=== PATIENT | male | born 1945 | race Caucasian/White ===

== ENCOUNTER 2023-04-22 20:31 | Inpatient (IN) | payer MEDICARE ==
[~2023-04-22] VITALS: Ht 165.1 cm; Wt 113.4 kg
[2023-04-22] MEDS ORDERED: IV NORMAL SALINE 500 ML BAG IV ONE (20:45)
[2023-04-22 21:02] LABS: BASOPHILS # (AUTO) 0.1 K/UL (0.0-0.2); EOSINOPHILS % (AUTO) 0.1 % (0.0-7.0); HEMATOCRIT 37.7 % (36.7-47.1); HEMOGLOBIN 12.7 g/dL (12.5-16.3); LYMPHOCYTES # (AUTO) 0.2 K/uL (0.8-4.8); LYMPHOCYTES % (AUTO) 3.2 % (20.5-51.5); MEAN CORPUSCULAR HEMOGLOBIN 33.3 uug (23.8-33.4); MEAN CORPUSCULAR HGB CONC 34 g/dL (32.5-36.3); MEAN CORPUSCULAR VOLUME 98.8 fL (73.0-96.2); MONOCYTES # (AUTO) 0.7 K/uL (0.1-1.30); MONOCYTES % (AUTO) 13.2 % (0.0-11.0); NEUTROPHILS # (AUTO) 4.7 K/uL (1.8-8.9); NEUTROPHILS % (AUTO) 82.5 % (38.5-71.5); PLATELET COUNT (AUTO) 120 K/uL (152-348); RED BLOOD CELL COUNT(AUTO) 3.81 MIL/uL (4.06-5.63); WHITE BLOOD COUNT (AUTO) 5.7 K/uL (3.6-10.2)
[2023-04-22] MEDS ORDERED: CHOL500062 PO (21:04)
[2023-04-22] MEDS ORDERED: CYAN50004 PO (21:04)
[2023-04-22] MEDS ORDERED: DONE5TAB7 PO (21:04)
[2023-04-22] MEDS ORDERED: TAMS-3 PO (21:04)
[2023-04-22] MEDS ORDERED: LISI40TA13 PO (21:04)
[2023-04-22] MEDS ORDERED: ATOR40TA PO (21:04)
[2023-04-22] MEDS ORDERED: METF-442 PO (21:04)
[2023-04-22] MEDS ORDERED: ASPI81TA31 PO (21:04)
[2023-04-22] MEDS ORDERED: CITA10TA17 PO (21:04)
[2023-04-22] MEDS ORDERED: FENO135C PO (21:04)
[2023-04-22] MEDS ORDERED: BUSP5TAB3 PO (21:04)
[2023-04-22 21:05] LABS: DIFFERENTIAL COMMENT 1
[2023-04-22 21:09] LABS: CALCIUM 9.7 mg/dL (8.5-10.1); CARBON DIOXIDE 25 mmol/L (21-32); CHLORIDE 101 mmol/L (98-107); CREATININE 0.9 mg/dL (0.6-1.3); GLUCOSE 106 mg/dL (74-106); POTASSIUM 3.7 mmol/L (3.5-5.1); SODIUM SERUM 136 mmol/L (136-145); UREA NITROGEN, BLOOD 15 mg/dL (7-18)
[2023-04-22 21:25] LABS: ALANINE AMINOTRANSFERASE 44 U/L (16-63); ALBUMIN 3.6 g/dL (3.4-5.0); ALKALINE PHOSPHATASE 25 U/L (50-136); ASPARTATE AMINOTRANSFERASE 55 U/L (15-37); BILIRUBIN,DIRECT 0.2 mg/dL (0.0-0.2); BILIRUBIN,TOTAL 0.6 mg/dL (0.2-1.0); TOTAL PROTEIN, SERUM 6.8 g/dL (6.4-8.2)
[2023-04-22 22:17] LABS: *BILIRUBIN,URIN NEGATIVE (NEGATIVE); *BLOOD, URINE NEGATIVE (NEGATIVE); *CLARITY,URINE CLEAR (CLEAR); *COLOR,URINE YELLOW (YELLOW); *KETONES,URINE NEGATIVE (NEGATIVE); *PROTEIN,URINE 1+ (NEGATIVE); *UROBILINOGEN,URINE 0.2 E.U./dl (NORMAL); LEUKOCYTE ESTERASE ,URINE NEGATIVE (NEGATIVE); NITRITE, URINE NEGATIVE (NEGATIVE); UGLUCOSE NEGATIVE (NEGATIVE)
[2023-04-22] MEDS ORDERED: ASPIRIN 325 MG TABLET PO ONE (22:30)
[2023-04-22] MEDS ORDERED: ASPIRIN 325 MG TABLET ONE (23:07)
[2023-04-23] MEDS ORDERED: INSULIN REGULAR, HUMAN 300 UNIT/3 ML VIAL SQ PRN (00:30)
[2023-04-23] MEDS ORDERED: DEXTROSE 50% 50 ML DISP.SYRIN IV PRN (00:30)
[2023-04-23 02:15] VITALS: BP 113/60; TEMP 99.2; O2SAT 96
[2023-04-23 05:16] LABS: BASOPHILS % (AUTO) 0.4 % (0.0-2.0); EOSINOPHILS % (AUTO) 0.1 % (0.0-7.0); HEMATOCRIT 35.8 % (36.7-47.1); HEMOGLOBIN 12.3 g/dL (12.5-16.3); LYMPHOCYTES # (AUTO) 0.8 K/uL (0.8-4.8); MEAN CORPUSCULAR HEMOGLOBIN 33.8 uug (23.8-33.4); MEAN CORPUSCULAR HGB CONC 34 g/dL (32.5-36.3); MEAN CORPUSCULAR VOLUME 98.2 fL (73.0-96.2); MONOCYTES # (AUTO) 0.7 K/uL (0.1-1.30); NEUTROPHILS # (AUTO) 2.8 K/uL (1.8-8.9); NEUTROPHILS % (AUTO) 64.4 % (38.5-71.5); PLATELET COUNT (AUTO) 103 K/uL (152-348); RED BLOOD CELL COUNT(AUTO) 3.64 MIL/uL (4.06-5.63); RED CELL DISTRIBUTION WIDTH 13.8 % (12.1-16.2); WHITE BLOOD COUNT (AUTO) 4.4 K/uL (3.6-10.2)
[2023-04-23 05:34] LABS: DIFFERENTIAL COMMENT 1; LYMPHOCYTES % (AUTO) 20.9 % (20.5-51.5); MONOCYTES % (AUTO) 14.2 % (0.0-11.0)
[2023-04-23 05:41] LABS: CALCIUM 8.2 mg/dL (8.5-10.1); CARBON DIOXIDE 24 mmol/L (21-32); CHLORIDE 102 mmol/L (98-107); CHOLESTEROL 120 mg/dL (<200); CREATININE 0.9 mg/dL (0.6-1.3); GLUCOSE 126 mg/dL (74-106); HDL CHOLESTEROL 40 mg/dL (40-60); POTASSIUM 2.9 mmol/L (3.5-5.1); SODIUM SERUM 139 mmol/L (136-145); TRIGLYCERIDES 134 MG/DL (30-150); UREA NITROGEN, BLOOD 16 mg/dL (7-18)
[2023-04-23] MEDS: BLOOD SUGAR DIAGNOSTIC 1 EACH STRIP VI SCH ×4 (07:30→21:00)
[2023-04-23] MEDS ORDERED: BLOOD SUGAR DIAGNOSTIC 1 EACH STRIP VI SCH (07:30)
[2023-04-23 08:00] VITALS: BP 115/60; TEMP 98; O2SAT 96
[2023-04-23] MEDS: FENOFIBRATE NANOCRYSTALLIZED 145 MG TABLET PO SCH (08:32)
[2023-04-23] MEDS: ASPIRIN 81 MG TAB.CHEW PO SCH (08:33)
[2023-04-23] MEDS: TAMSULOSIN HCL 0.4 MG CAP.SR.24H PO SCH ×2 (08:33→21:53)
[2023-04-23] MEDS: DONEPEZIL 5 MG TABLET PO SCH (08:33)
[2023-04-23] MEDS: CHOLECALCIFEROL 1,000 UNIT TABLET PO SCH (08:35)
[2023-04-23] MEDS ORDERED: CITALOPRAM 10 MG TABLET PO SCH (09:00)
[2023-04-23] MEDS ORDERED: CYANOCOBALAMIN 1,000 MCG TABLET PO SCH (09:00)
[2023-04-23] MEDS: POTASSIUM CHLORIDE 10 MEQ TAB.PRT.SR PO SCH ×2 (10:17→12:04)
[2023-04-23] MEDS: CYANOCOBALAMIN 1,000 MCG TABLET PO SCH (11:08)
[2023-04-23 12:00] VITALS: BP 111/68; TEMP 99; O2SAT 96
[2023-04-23 16:59] VITALS: BP 151/75; TEMP 99; O2SAT 96
[2023-04-23] MEDS: CLOPIDOGREL 75 MG TABLET PO SCH (18:45)
[2023-04-23 19:30] LABS: THYROID STIMULATING HORMONE 1.665 mIU/mL (0.358-3.740)
[2023-04-23] MEDS ORDERED: IV NORMAL SALINE 250 ML IV ONE (20:32)
[2023-04-23] MEDS ORDERED: IOHEXOL 350 100 ML INFUS..BTL ONE (20:32)
[2023-04-23] MEDS ORDERED: SWABABLE VALVE TRANSFER SET EA MC ONE (20:32)
[2023-04-23] MEDS ORDERED: ATORVASTATIN 40 MG TABLET PO SCH (21:00)
[2023-04-23] MEDS: CITALOPRAM 10 MG TABLET PO SCH (23:17)
[2023-04-24 05:10] VITALS: BP 152/78; TEMP 98.5; O2SAT 97
[2023-04-24] MEDS: BLOOD SUGAR DIAGNOSTIC 1 EACH STRIP VI SCH ×3 (06:59→16:25)
[2023-04-24 07:57] LABS: CALCIUM 9.2 mg/dL (8.5-10.1); CARBON DIOXIDE 23 mmol/L (21-32); CHLORIDE 102 mmol/L (98-107); CREATININE 0.8 mg/dL (0.6-1.3); GLUCOSE 109 mg/dL (74-106); POTASSIUM 3.3 mmol/L (3.5-5.1); SODIUM SERUM 139 mmol/L (136-145); UREA NITROGEN, BLOOD 12 mg/dL (7-18)
[2023-04-24] MEDS: CYANOCOBALAMIN 1,000 MCG TABLET PO SCH (09:12)
[2023-04-24] MEDS: CHOLECALCIFEROL 1,000 UNIT TABLET PO SCH (09:12)
[2023-04-24] MEDS: ASPIRIN 81 MG TAB.CHEW PO SCH (09:12)
[2023-04-24] MEDS: FENOFIBRATE NANOCRYSTALLIZED 145 MG TABLET PO SCH (09:12)
[2023-04-24] MEDS: DONEPEZIL 5 MG TABLET PO SCH (09:13)
[2023-04-24] MEDS: CLOPIDOGREL 75 MG TABLET PO SCH (09:13)
[2023-04-24] MEDS: TAMSULOSIN HCL 0.4 MG CAP.SR.24H PO SCH ×2 (09:13→20:38)
[2023-04-24] MEDS ORDERED: SWABABLE VALVE TRANSFER SET EA MC ONE (10:50)
[2023-04-24] MEDS ORDERED: IV NORMAL SALINE 250 ML IV ONE (10:50)
[2023-04-24] MEDS ORDERED: LORAZEPAM 2 MG/1 ML VIAL IV ONE (11:45)
[2023-04-24] MEDS ORDERED: POTASSIUM CHLORIDE 20 MEQ TAB.PRT.SR PO ONE (12:00)
[2023-04-24 12:07] VITALS: BP 147/73; TEMP 98.1; O2SAT 98
[2023-04-24] MEDS: PROTEIN SUPPLEMENT (PROSTAT) 30 ML LIQUID PO SCH (16:26)
[2023-04-24 17:47] VITALS: BP 145/73; TEMP 97.9; O2SAT 98
[2023-04-24] MEDS: CITALOPRAM 10 MG TABLET PO SCH (20:38)
[2023-04-24] MEDS ORDERED: ACETAMINOPHEN 325 MG TABLET PO PRN (21:45)
[2023-04-25 04:00] VITALS: BP 140/73; TEMP 97.4; O2SAT 94
[2023-04-25 06:47] LABS: BASOPHILS % (AUTO) 0.6 % (0.0-2.0); EOSINOPHILS % (AUTO) 0.7 % (0.0-7.0); HEMATOCRIT 37.5 % (36.7-47.1); HEMOGLOBIN 12.9 g/dL (12.5-16.3); LYMPHOCYTES # (AUTO) 0.9 K/uL (0.8-4.8); LYMPHOCYTES % (AUTO) 27.2 % (20.5-51.5); MEAN CORPUSCULAR HEMOGLOBIN 33.3 uug (23.8-33.4); MEAN CORPUSCULAR HGB CONC 34 g/dL (32.5-36.3); MEAN CORPUSCULAR VOLUME 96.6 fL (73.0-96.2); MONOCYTES # (AUTO) 0.6 K/uL (0.1-1.30); MONOCYTES % (AUTO) 16.9 % (0.0-11.0); NEUTROPHILS # (AUTO) 1.8 K/uL (1.8-8.9); NEUTROPHILS % (AUTO) 54.6 % (38.5-71.5); PLATELET COUNT (AUTO) 125 K/uL (152-348); RED BLOOD CELL COUNT(AUTO) 3.88 MIL/uL (4.06-5.63); RED CELL DISTRIBUTION WIDTH 13.8 % (12.1-16.2); WHITE BLOOD COUNT (AUTO) 3.3 K/uL (3.6-10.2)
[2023-04-25 07:07] LABS: DIFFERENTIAL COMMENT 1
[2023-04-25 07:40] LABS: CALCIUM 9.3 mg/dL (8.5-10.1); CARBON DIOXIDE 24 mmol/L (21-32); CHLORIDE 103 mmol/L (98-107); CREATININE 0.9 mg/dL (0.6-1.3); GLUCOSE 113 mg/dL (74-106); POTASSIUM 3.3 mmol/L (3.5-5.1); SODIUM SERUM 138 mmol/L (136-145); UREA NITROGEN, BLOOD 16 mg/dL (7-18)
[2023-04-25] MEDS: ASPIRIN 81 MG TAB.CHEW PO SCH (08:43)
[2023-04-25] MEDS: CLOPIDOGREL 75 MG TABLET PO SCH (08:43)
[2023-04-25] MEDS: DONEPEZIL 5 MG TABLET PO SCH (08:43)
[2023-04-25] MEDS: CHOLECALCIFEROL 1,000 UNIT TABLET PO SCH (08:44)
[2023-04-25] MEDS: FENOFIBRATE NANOCRYSTALLIZED 145 MG TABLET PO SCH (08:44)
[2023-04-25] MEDS: CYANOCOBALAMIN 1,000 MCG TABLET PO SCH (08:45)
[2023-04-25] MEDS: PROTEIN SUPPLEMENT (PROSTAT) 30 ML LIQUID PO SCH (08:52)
[2023-04-25] MEDS: TAMSULOSIN HCL 0.4 MG CAP.SR.24H PO SCH (08:59)
[2023-04-25] MEDS ORDERED: POTASSIUM CHLORIDE 20 MEQ TAB.PRT.SR PO ONE (09:00)
[2023-04-25] MEDS ORDERED: GLUCERNA SHAKE 237 ML CAN PO SCH (09:00)
[2023-04-25 11:38] VITALS: BP 148/79; TEMP 98.5; O2SAT 98
[2023-04-25 14:11] LABS: EOSINOPHILS % (MANUAL) 1 % (0-8); LYMPHOCYTES % (MANUAL) 29 % (20-40); MONOCYTES % (MANUAL) 18 % (2-10); NEUTROPHILS % (MANUAL) 52 % (42-75)
[2023-04-25 14:12] LABS: PLATELET ESTIMATE DECREASED
== END 2023-04-25 14:20 | disposition home or self-care (01) | DRG 69 ==
LOC: ER 20:33 → CCU 22:28 → TELE3 04-23 16:30
PROVIDERS: ADMIT Student in an Organized Health Care Education/Training Program; ATTEND Internal Medicine
DX: G45.9 Transient cerebral ischemic attack, unspecified (principal); U07.1 COVID-19; R47.01 Aphasia; G93.40 Encephalopathy, unspecified; Z68.41 Body mass index [BMI] 40.0-44.9, adult; R29.702 NIHSS score 2; D69.6 Thrombocytopenia, unspecified; E11.9 Type 2 diabetes mellitus without complications; E78.5 Hyperlipidemia, unspecified; E83.51 Hypocalcemia; E86.0 Dehydration; E87.6 Hypokalemia; F02.80 Dementia in other diseases classified elsewhere, unspecified severity, without behavioral disturbance, psychotic disturbance, mood disturbance, and anxiety; G30.9 Alzheimer's disease, unspecified; I10 Essential (primary) hypertension; Z79.82 Long term (current) use of aspirin; Z79.84 Long term (current) use of oral hypoglycemic drugs; N40.0 Benign prostatic hyperplasia without lower urinary tract symptoms; E66.9 Obesity, unspecified; W19.XXXA Unspecified fall, initial encounter; Y92.009 Unspecified place in unspecified non-institutional (private) residence as the place of occurrence of the external cause; R53.1 Weakness
CPT/HCPCS: 36415; 70030-TC; 70450; 70496; 70551; 71045; 82747; 83921; 84443; 84484; 85014; 85025; 85730; 93005; 93880; A4606; A4663; G0378; J1815; J2060; Q9967